=== PATIENT | female | born 1945 | race African-American/Black ===

== ENCOUNTER 2018-07-03 08:50 | Emergency (ER) | payer MEDICARE, OTHER ==
[~2018-07-03] VITALS: Ht 170.2 cm; Wt 82.0 kg
[~2018-07-03 08:50] MED LIST: HCTZ
[2018-07-03] MEDS ORDERED: IBUPROFEN 600MG TABLET PO ONE (10:45)
[2018-07-03 13:37] VITALS: BP 117/80
== END 2018-07-03 13:38 | disposition home or self-care (01) ==
LOC: ER 09:15
DX: M25.511 Pain in right shoulder (principal); M19.011 Primary osteoarthritis, right shoulder; M19.90 Unspecified osteoarthritis, unspecified site; E78.00 Pure hypercholesterolemia, unspecified; I10 Essential (primary) hypertension; Z88.0 Allergy status to penicillin; Z88.6 Allergy status to analgesic agent; Z98.51 Tubal ligation status
CPT/HCPCS: 73030; 99284

== ENCOUNTER 2018-12-30 09:33 | Emergency (ER) | payer MEDICARE, OTHER ==
[~2018-12-30] VITALS: Ht 170.2 cm; Wt 93.0 kg
[2018-12-30 09:45] VITALS: BP 126/75
== END 2018-12-30 10:46 | disposition home or self-care (01) ==
LOC: ER 09:33
DX: J20.9 Acute bronchitis, unspecified (principal); I10 Essential (primary) hypertension; E78.00 Pure hypercholesterolemia, unspecified; Z98.51 Tubal ligation status; Z88.0 Allergy status to penicillin; Z88.5 Allergy status to narcotic agent
CPT/HCPCS: 71045; 99283

== ENCOUNTER 2019-01-20 10:49 | Emergency (ER) | payer MEDICARE, OTHER ==
[~2019-01-20] VITALS: Ht 170.2 cm; Wt 91.0 kg
[2019-01-20 10:57] VITALS: BP 115/74
== END 2019-01-20 12:30 | disposition home or self-care (01) ==
LOC: ER 10:49
DX: L02.413 Cutaneous abscess of right upper limb (principal); E78.00 Pure hypercholesterolemia, unspecified; I10 Essential (primary) hypertension; Z98.51 Tubal ligation status; Z88.0 Allergy status to penicillin; Z88.1 Allergy status to other antibiotic agents
CPT/HCPCS: 99283

== ENCOUNTER 2019-04-19 13:32 | Emergency (ER) | payer MEDICARE, OTHER ==
[~2019-04-19] VITALS: Ht 231.1 cm; Wt 100.0 kg
[2019-04-19] MEDS ORDERED: LIDOCAINE HCL/PF 1% 10 MG/ML 5ML VIAL IJ ONE (15:15)
[2019-04-19 15:50] VITALS: BP 135/81
== END 2019-04-19 16:17 | disposition home or self-care (01) ==
LOC: ER 13:40
DX: L02.11 Cutaneous abscess of neck (principal); I10 Essential (primary) hypertension; E78.00 Pure hypercholesterolemia, unspecified; Z88.0 Allergy status to penicillin; Z88.5 Allergy status to narcotic agent; Z98.51 Tubal ligation status
CPT/HCPCS: 81025; 87070; 87205; 99283; J3490

== ENCOUNTER 2020-01-03 08:25 | Emergency (ER) | payer MEDICARE, OTHER ==
[~2020-01-03] VITALS: Ht 167.6 cm; Wt 90.0 kg
[2020-01-03] MEDS ORDERED: IPRATROPIUM BROMIDE (0.02%) 0.5MG/2.5ML NEB HHN STA (09:20)
[2020-01-03] MEDS ORDERED: ALBUTEROL (0.083%) 2.5MG/3ML NEB HHN STA (09:20)
[2020-01-03 09:38] LABS: CHLORIDE 103 mEq/L (98-107)
[2020-01-03 09:41] LABS: BASOPHILS % 0.5 % (0.0-2.0); EOSINOPHILS % 2.6 % (0.0-5.0); HEMATOCRIT. 40.1 % (36.0-48.0); HEMOGLOBIN. 13.2 g/dL (12.0-16.0); LYMPHOCYTES % 18.5 % (20.0-50.0); MEAN CORPUSCULAR HEMOGLOBIN 27.5 pg (28.0-32.0); MEAN CORPUSCULAR VOLUME 83.6 fL (81.0-99.0); MEAN PLATELET VOLUME 7.3 fl (7.4-10.4); MONOCYTES % 9.1 % (2.0-8.0); NEUTROPHILS % 69.3 % (40.0-76.0); PLATELET 286 x1000/uL (130-400); RED CELL DISTRIBUTION WIDTH 14.2 % (11.6-14.6)
[2020-01-03 10:30] VITALS: BP 110/74
== END 2020-01-03 10:45 | disposition home or self-care (01) ==
LOC: ER 08:25
DX: J40 Bronchitis, not specified as acute or chronic (principal); E78.00 Pure hypercholesterolemia, unspecified; I10 Essential (primary) hypertension; Z98.51 Tubal ligation status; Z88.0 Allergy status to penicillin; Z88.5 Allergy status to narcotic agent
CPT/HCPCS: 36415; 71045; 80053; 83880; 85025; 94640; 99285

== ENCOUNTER 2020-01-11 08:54 | Emergency (ER) | payer MEDICARE, OTHER ==
[~2020-01-11] VITALS: Ht 170.2 cm; Wt 74.0 kg
[2020-01-11] MEDS ORDERED: IBUPROFEN 600MG TABLET PO ONE (10:45)
[2020-01-11 11:18] VITALS: BP 141/77
== END 2020-01-11 11:35 | disposition home or self-care (01) ==
LOC: ER 08:54
DX: S83.92XA Sprain of unspecified site of left knee, initial encounter (principal); M17.12 Unilateral primary osteoarthritis, left knee; W01.0XXA Fall on same level from slipping, tripping and stumbling without subsequent striking against object, initial encounter; Y93.89 Activity, other specified; Y92.89 Other specified places as the place of occurrence of the external cause
CPT/HCPCS: 73562; 99283

== ENCOUNTER 2020-04-28 09:33 | Emergency (ER) | payer MEDICARE, OTHER ==
[~2020-04-28] VITALS: Ht 170.2 cm; Wt 100.0 kg
[2020-04-28] MEDS ORDERED: HYDROCODONE/ACETAMINOPHEN 5/325MG TABLET PO ONE (11:45)
[2020-04-28 12:13] VITALS: BP 129/84
== END 2020-04-28 12:29 | disposition home or self-care (01) ==
LOC: ER 09:33
DX: M54.5 Low back pain (principal); I10 Essential (primary) hypertension; E78.00 Pure hypercholesterolemia, unspecified; Z91.81 History of falling; Z98.51 Tubal ligation status; Z88.5 Allergy status to narcotic agent; Z88.0 Allergy status to penicillin
CPT/HCPCS: 72131; 99284

== ENCOUNTER 2020-06-22 08:43 | Emergency (ER) | payer MEDICARE, OTHER ==
[~2020-06-22] VITALS: Ht 170.2 cm; Wt 91.0 kg
[2020-06-22 09:22] VITALS: BP 128/77
== END 2020-06-22 09:23 | disposition home or self-care (01) ==
LOC: ER 08:43
DX: L72.9 Follicular cyst of the skin and subcutaneous tissue, unspecified (principal); M19.90 Unspecified osteoarthritis, unspecified site; I10 Essential (primary) hypertension; E78.00 Pure hypercholesterolemia, unspecified; Z88.5 Allergy status to narcotic agent; Z88.0 Allergy status to penicillin
CPT/HCPCS: 99282

== ENCOUNTER 2020-07-28 12:10 | Emergency (ER) | payer MEDICARE, OTHER ==
[~2020-07-28] VITALS: Ht 170.2 cm; Wt 91.0 kg
[2020-07-28 13:34] LABS: BASOPHILS % 0.9 % (0.0-2.0); EOSINOPHILS % 3.3 % (0.0-5.0); HEMATOCRIT. 40.2 % (36.0-48.0); HEMOGLOBIN. 13.1 g/dL (12.0-16.0); LYMPHOCYTES % 34.8 % (20.0-50.0); MEAN CORPUSCULAR HEMOGLOBIN 27.5 pg (28.0-32.0); MEAN CORPUSCULAR VOLUME 84.5 fL (81.0-99.0); MEAN PLATELET VOLUME 7.5 fl (7.4-10.4); MONOCYTES % 11.6 % (2.0-8.0); NEUTROPHILS % 49.4 % (40.0-76.0); PLATELET 290 x1000/uL (130-400); RED BLOOD CELL COUNT 4.77 mill/uL (4.2-5.4); RED CELL DISTRIBUTION WIDTH 14.2 % (11.6-14.6)
[2020-07-28 13:37] LABS: CHLORIDE 103 mEq/L (98-107)
[2020-07-28 13:40] LABS: PROTHROMBIN TIME 10.5 sec (9.6-11.0)
[2020-07-28 14:24] VITALS: BP 128/87
== END 2020-07-28 14:31 | disposition home or self-care (01) ==
LOC: ER 12:10
DX: K60.3 Anal fistula (principal); I10 Essential (primary) hypertension; E78.00 Pure hypercholesterolemia, unspecified; Z98.51 Tubal ligation status; Z88.0 Allergy status to penicillin; Z88.2 Allergy status to sulfonamides
CPT/HCPCS: 36415; 71045; 80053; 85025; 86850; 86900; 99285

== ENCOUNTER 2022-07-27 22:26 | Emergency (ER) | payer MEDICARE, MEDICAID ==
[~2022-07-27] VITALS: Ht 170.2 cm; Wt 97.0 kg
[2022-07-28] MEDS ORDERED: KETOROLAC 60MG/2ML VIAL IM ONE (02:45)
[2022-07-28] MEDS ORDERED: ACET-2708 MT (04:23)
[2022-07-28] MEDS ORDERED: CYCL5TAB MT (04:29)
[2022-07-28 05:06] VITALS: BP 130/68
== END 2022-07-28 05:04 | disposition home or self-care (01) ==
LOC: ER 22:26
DX: M54.50 Low back pain, unspecified (principal); M25.562 Pain in left knee; M25.561 Pain in right knee; I10 Essential (primary) hypertension; E11.9 Type 2 diabetes mellitus without complications; E78.00 Pure hypercholesterolemia, unspecified; Z98.51 Tubal ligation status; Z88.5 Allergy status to narcotic agent; Z88.0 Allergy status to penicillin; V43.62XA Car passenger injured in collision with other type car in traffic accident, initial encounter; Y93.89 Activity, other specified; Y92.488 Other paved roadways as the place of occurrence of the external cause
CPT/HCPCS: 73562; 96372; 99283; J1885